=== PATIENT | female | born 1985 | race Caucasian/White ===

== ENCOUNTER 2021-10-01 10:05 | Outpatient (CLI) | payer BC | END 2021-10-01 10:06 | disposition EMS.NT | LOC: EMS 10:05 | DX: Z03.89 Encounter for observation for other suspected diseases and conditions ruled out (principal) ==

== ENCOUNTER 2021-10-02 06:07 | Outpatient (CLI) | payer BC | END 2021-10-02 06:08 | disposition critical access hospital (66) | LOC: EMS 06:07 | DX: R46.89 Other symptoms and signs involving appearance and behavior (principal); L29.9 Pruritus, unspecified | CPT/HCPCS: A0425; A0429 ==

== ENCOUNTER 2021-10-02 06:27 | Emergency (ER) | payer BC ==
[2021-10-02 06:41] VITALS: BP 132/70
== END 2021-10-02 06:51 | disposition left against medical advice (07) ==
LOC: ED 06:27
DX: Z53.21 Procedure and treatment not carried out due to patient leaving prior to being seen by health care provider (principal)

== ENCOUNTER 2021-10-02 17:18 | Emergency (ER) | payer BC ==
[2021-10-02 18:20] LABS: BASOPHILS % (AUTO) 0.1 %; EOSINOPHILS % (AUTO) 0.5 %; HCT - HEMATOCRIT 43.8 % (37.0-47.0); HGB - HEMOGLOBIN 14.9 g/dL (12.0-16.0); LYMPHOCYTES % (AUTO) 24.1 %; MEAN CORPUSCULAR HEMOGLOBIN 30.1 pg (27.0-31.0); MEAN CORPUSCULAR VOLUME 88.5 fL (81.0-99.0); MEAN PLATELET VOLUME 10.1 fL (7.9-10.8); MONOCYTES # (AUTO) 0.7 10^3/uL (0.0-1.0); MONOCYTES % (AUTO) 8.7 %; NEUTROPHILS # (AUTO) 5.4 10^3/uL (1.5-6.6); NEUTROPHILS % (AUTO) 66.4 %; PLT - PLATELET COUNT 304 10^3/uL (130-450); RED BLOOD COUNT 4.95 10^6/uL (4.20-5.40); RED CELL DISTRIBUTION WIDTH 12.5 % (12.0-15.0); WHITE BLOOD COUNT 8.1 x10^3/uL (4.8-10.8)
[2021-10-02 18:26] LABS: ALBUMIN/GLOBULIN RATIO 1.9 (1.0-2.2); BILIRUBIN,TOTAL 0.9 mg/dL (0.2-1.0); CREATININE 0.9 mg/dL (0.4-1.0); POTASSIUM 3.5 mmol/L (3.5-5.0); TOTAL PROTEIN 7.7 g/dL (6.7-8.2)
[2021-10-02 18:33] LABS: GLUCOSE, URINE (UA) NEGATIVE (NEGATIVE); KETONES,URINE (UA) >=80 mg/dL (NEGATIVE); LEUKOCYTE ESTERASE, URINE NEGATIVE (NEGATIVE); NITRITE,URINE NEGATIVE (NEGATIVE); OCCULT BLOOD,URINE NEGATIVE (NEGATIVE); PROTEIN,URINE 100 mg/dL (NEGATIVE); UROBILINOGEN,URINE 0.2 (NORMAL) E.U./dL (NORMAL)
--- NOTE | 2021-10-02 18:36 | ED Physician Documentation ---
History of Present Illness - Stated complaint Stated Complaint: FEMALE - Chief complaint Chief Complaint: Abd Pain - Additonal information Additional information: 36-year-old female presents emergency department for evaluation of 2 days lower abdominal cramping and reported vaginal bleeding and pus draining from her vagina. She also states that she scratched her ear and thought there was a bug in it and now thinks that she has bugs in her vagina. She is and sexually active. Denies dyspareunia. No history of STI. No pelvic surgical history. No fevers, some vomiting. Pt's reports concern that pt has not bonded well with her baby and is hallucinating. he would like her to be involuntarily committed to the hospital. I discussed these concerns with the patient. She is alert, well appearing. Oriented to person, time or place. She Denies SI/HI. She is concerned that she has bugs crawling in her vagina, which is why she comes to the ED> however she does nto desire psychiatric placement and appears to have the capacity to decline this Review of Systems Constitutional: reports: Reviewed and negative Ears: reports: Reviewed and negative Nose: reports: Reviewed and negative Throat: reports: Reviewed and negative Cardiac: reports: Reviewed and negative Respiratory: reports: Reviewed and negative GI: reports: Vomiting. denies: Abdominal Pain : reports: Other (Pelvic cramping pain/cramp). 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 : None HEENT: None Psych: ADD/ADHD Musculoskeletal: None Derm: None - Past Surgical History Past Surgical History: No - Present Medications Home Medications: Ambulatory Orders Medication Instructions Recorded Confirmed Dextroamphetamine/Amphetamine 15 mg PO DAILY 10/02/21 10/02/21 [Adderall 15 mg Tablet] - Allergies Allergies/Adverse Reactions: Allergies Allergy/AdvReac Type Severity Reaction Status Date / Time No Known Drug Allergies Allergy Verified 10/02/21 17:41 - Social History Does the pt smoke?: Yes Smoking Status: Current every day smoker Does the pt drink ETOH?: No Does the pt have substance abuse?: No - Immunizations Immunizations are current?: No - POLST Patient has POLST: No PD ED PE NORMAL - General General: Alert and oriented X 3, No acute distress - HEENT HEENT: Atraumatic, Moist mucous membranes - Neck Neck: Supple, no meningeal sign, No adenopathy - Cardiac Cardiac: RRR, No murmur - Respiratory Respiratory: No respiratory distress, Clear bilaterally - Abdomen Abdomen: Soft, Non tender - Back Back: No CVA TTP - Derm Derm: Normal color, Warm and dry - Extremities Extremities: No deformity, No tenderness to palpate, Normal ROM s pain - Neuro Neuro: Alert and oriented X 3, inspector chief 2-12 intact Eye Opening: Spontaneous Motor: Obeys Commands Verbal: Oriented GCS Score: 15 - Psych Psych: Normal mood (No AH/VH. Denies SI/HI. Declines psychiatric evaluation) Results - Vitals Vitals: Vital Signs - 24 hr 10/02/21 10/02/21 17:35 18:28 Temperature 36.3 C L 36.4 C L Heart Rate 120 H 106 H Respiratory 16 18 Rate Blood Pressure 149/82 H 144/99 H O2 Saturation 97 98 Oxygen O2 Source Room air - Labs Labs: Microbiology 10/02/21 19:18 Wet Prep - Final Vaginal Laboratory Tests 10/02/21 10/02/21 10/02/21 17:50 18:06 18:06 WBC 8.1 RBC 4.95 Hgb 14.9 Hct 43.8 MCV 88.5 MCH 30.1 MCHC 34.0 RDW 12.5 Plt Count 304 MPV 10.1 Neut # (Auto) 5.4 Lymph # (Auto) 2.0 [place] # (Auto) 0.7 Eos # (Auto) 0.0 Baso # (Auto) 0.0 Absolute Nucleated RBC 0.00 Nucleated RBC % 0.0 Sodium 140 Potassium 3.5 Chloride 99 L Carbon Dioxide 26 Anion Gap 15.0 H BUN 15 Creatinine 0.9 Estimated GFR (MDRD) 71 L Glucose 129 H Calcium 10.0 Total Bilirubin 0.9 AST 33 ALT 28 Alkaline Phosphatase 75 Total Protein 7.7 Albumin 5.0 Globulin 2.7 Albumin/Globulin Ratio 1.9 Lipase 42 Urine Color YELLOW Urine Clarity CLEAR Urine pH 6.0 Ur Specific [place] >=1.030 H Urine Protein 100 H Urine Glucose (UA) NEGATIVE Urine Ketones >=80 H Urine Occult Blood NEGATIVE Urine Nitrite NEGATIVE Urine Bilirubin NEGATIVE Urine Urobilinogen 0.2 (NORMAL) Ur Leukocyte Esterase NEGATIVE Urine RBC 0-5 Urine WBC 0-3 Ur Squamous Epith Cells FEW Squamous Urine Bacteria None Seen Urine Mucus Marked Strands Ur Microscopic Review INDICATED Urine Culture Comments NOT INDICATED Urine HCG, Qual NEGATIVE PD MEDICAL DECISION MAKING - ED course Complexity details: reviewed results, re-evaluated patient, considered differential, d/w patient ED course: 36-year-old female presents to the emergency department for evaluation of 2 days lower abdominal pelvic pain and cramping as well as what she reported as purulent discharge. Her screening labs including her urinalysis are unremarkable. I did do a pelvic exam at the bedside and found no abnormal discharge. There was no uterine or adnexal tenderness. With the patient's permission I did speak to her in private. He is concerned that the patient is hallucinating and seeing bugs. The patient denies that she sees bugs though she is concerned that she could have had them in her vagina. She has no thoughts of self-harm or harm to others. Her reported that she ran away from home yesterday when they got into an argument but she did return. He would like her to have a psychiatric evaluation but the patient does not consent to this and she appears to have the capacity to make that decision at this time. With regards to her pelvic pain I did offer a pelvic ultrasound but she no longer wanted to wait therefore she will be discharged with outpatient follow-up. Departure - Departure Disposition: 01 Home, Self Care Clinical Impression: Pelvic pain Condition: Stable Record reviewed to determine appropriate education?: Yes Comments: You are seen in the emergency department today for lower pelvic cramping. You had reported discharge from your vagina. However your pelvic exam today was normal. On palpation your uterus and ovaries were nontender. We did offer a pelvic ultrasound but you declined that due to the wait time. I do recommend you follow-up closely with your primary care doctor to have a pelvic ultrasound ordered as an outpatient. Your expressed concern to us that you have run away from home and that you may be having hallucinations. You are denying hallucinations to me and you are alert and oriented. We cannot compel you to stay and seek treatment that you do not desire. If you ever feel unsafe, have thoughts of harm to yourself or anyone else then you are to return immediately to the ER.
[2021-10-02 18:37] LABS: BILIRUBIN,URINE NEGATIVE (NEGATIVE); CLARITY,URINE CLEAR (CLEAR); HCG UR QUAL NEGATIVE; ICTOTEST,URINE NEGATIVE
[2021-10-02 18:50] LABS: BACTERIA,URINE None Seen /HPF (None Seen); MUCUS,URINE Marked Strands; RBC,URINE 0-5 /HPF (0-5); SQUAMOUS EPITHELIAL CELL,UR FEW Squamous (<= Few); WBC,URINE 0-3 /HPF (0-5)
[2021-10-02 20:13] VITALS: BP 140/81
[2021-10-02 22:49] LABS: CHLAMYDIA TRACHOMATIS DNA NEGATIVE (NEGATIVE); NEISSERIA GONORRHOEAE DNA NEGATIVE (NEGATIVE); TRICHOMONAS VAGINALIS DNA NEGATIVE (NEGATIVE)
== END 2021-10-02 20:12 | disposition home or self-care (01) ==
LOC: ED 17:18
DX: R10.30 Lower abdominal pain, unspecified (principal); F17.200 Nicotine dependence, unspecified, uncomplicated
CPT/HCPCS: 36415; 80053; 81001; 81003; 81025; 83690; 85025; 87086; 87210; 87491; 87591; 87661; 99283; 99284

== ENCOUNTER 2021-10-03 06:37 | Outpatient (CLI) | payer BC | END 2021-10-03 06:38 | disposition EMS.NT | LOC: EMS 06:37 | DX: R44.1 Visual hallucinations (principal) ==

== ENCOUNTER 2021-10-03 13:18 | Emergency (ER) | payer BC ==
[2021-10-03 13:51] LABS: BASOPHILS % (AUTO) 0.2 %; EOSINOPHILS % (AUTO) 0.4 %; HGB - HEMOGLOBIN 14.2 g/dL (12.0-16.0); LYMPHOCYTES # (AUTO) 1.5 10^3/uL (1.5-3.5); MEAN CORPUSCULAR HEMOGLOBIN 30.1 pg (27.0-31.0); MEAN CORPUSCULAR HGB CONC 33.8 g/dL (32.0-36.0); MEAN PLATELET VOLUME 9.7 fL (7.9-10.8); MONOCYTES # (AUTO) 0.4 10^3/uL (0.0-1.0); MONOCYTES % (AUTO) 8.2 %; NEUTROPHILS # (AUTO) 2.7 10^3/uL (1.5-6.6); PLT - PLATELET COUNT 252 10^3/uL (130-450); RED BLOOD COUNT 4.72 10^6/uL (4.20-5.40); RED CELL DISTRIBUTION WIDTH 12.5 % (12.0-15.0); WHITE BLOOD COUNT 4.6 x10^3/uL (4.8-10.8)
[2021-10-03 14:12] LABS: ACETAMINOPHEN < 10 ug/mL (10-30); ALBUMIN 4.5 g/dL (3.2-5.5); ALBUMIN/GLOBULIN RATIO 1.7 (1.0-2.2); ALKALINE PHOSPHATASE 65 IU/L (42-121); ALT ALANINE AMINOTRANSFERASE 29 IU/L (10-60); AST ASPARTATE AMINOTRANSFERASE 35 IU/L (10-42); BILIRUBIN,TOTAL 1.2 mg/dL (0.2-1.0); BUN - BLOOD UREA NITROGEN 11 mg/dL (6-20); CALCIUM 9.4 mg/dL (8.5-10.3); CARBON DIOXIDE - CO2 25 mmol/L (21-32); CHLORIDE 102 mmol/L (101-111); CREATININE 0.7 mg/dL (0.4-1.0); ETOH - ETHANOL < 5.0 mg/dL; GFR - MDRD 95 (>89); GLUCOSE 105 mg/dL (70-100); LIPASE 93 U/L (22-51); POTASSIUM 3.1 mmol/L (3.5-5.0); SALICYLATE < 6.0 mg/dL; SODIUM 142 mmol/L (135-145); TOTAL PROTEIN 7.2 g/dL (6.7-8.2)
[2021-10-03 14:16] LABS: MUDS CUTOFF CONCENTRATIONS CUTOFF CONC BELOW:
--- NOTE | 2021-10-03 14:29 | ED Physician Documentation ---
History of Present Illness - Stated complaint Stated Complaint: FEMALE , MHE - Chief complaint Chief Complaint: MHE - Additonal information Additional information: 36-year-old female return to the emergency department with her for a mental health evaluation. reports that over the last 2 weeks the patient has been reportedly complaining that there are bugs in her children's eyes and on her and inside her vagina. She does have an unclear psychiatric history and psychiatric hospitalization when she was a teenager. This morning the patient was attempting to load the handgun at home with bullets but because it was locked she could not do that. She reportedly stated that she wanted to because she is tired of feeling unwell. Patient is 5 months reports patient is not bonding well with the child. Very rarely interactive with it and holds it only to breast-feed. The patient denies that she has thoughts of harm to others. She has never tried to harm her self in the past and is unsure if she would harm her self now but she does not feel safe. She states that she would allow voluntary psychiatric hospitalization if it was felt best for her. Patient was seen in the emergency department last night for pelvic concerns and that there may be bugs crawling in her. Her pelvic and vaginal exam was unremarkable. Wet prep was negative. Her did discuss concerns that the patient is not bonding well with the child at home. He also reported to me that the patient is seeing bugs. However at that time there was no suicidal thoughts. And the patient could not be compelled to stay for psychiatric evaluation. She did have the capacity to make that decision. Review of Systems Constitutional: denies: Fever, Chills Eyes: reports: Reviewed and negative Nose: reports: Reviewed and negative Throat: reports: Reviewed and negative Cardiac: reports: Reviewed and negative Respiratory: reports: Reviewed and negative GI: reports: Reviewed and negative : reports: Reviewed and negative Skin: reports: Reviewed and negative Musculoskeletal: reports: Reviewed and negative Psychiatric: reports: Depressed, Suicidal, Hallucinations Endocrine: reports: Reviewed and negative PD PAST MEDICAL HISTORY - Past Medical History Cardiovascular: None Respiratory: None Neuro: None Endocrine/Autoimmune: None GI: 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 : None HEENT: None Psych: ADD/ADHD Musculoskeletal: None Derm: None - Past Surgical History Past Surgical History: No - Present Medications Home Medications: Ambulatory Orders Medication Instructions Recorded Confirmed Dextroamphetamine/Amphetamine 15 mg PO DAILY 10/02/21 10/02/21 [Adderall 15 mg Tablet] - Allergies Allergies/Adverse Reactions: Allergies Allergy/AdvReac Type Severity Reaction Status Date / Time No Known Drug Allergies Allergy Verified 10/03/21 13:28 - Social History Does the pt smoke?: Yes Smoking Status: Current every day smoker Does the pt drink ETOH?: No Does the pt have substance abuse?: No - Immunizations Immunizations are current?: No - POLST Patient has POLST: No PD ED PE NORMAL - General General: Alert and oriented X 3, No acute distress, Well developed/nourished - HEENT HEENT: Atraumatic, Ears normal, Moist mucous membranes - Neck Neck: Supple, no meningeal sign, No adenopathy - Cardiac Cardiac: RRR, No murmur - Respiratory Respiratory: No respiratory distress - Abdomen Abdomen: Normal bowel sounds, Soft - 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 No vaginal discharge. No CMT or adnexal tenderness) - Derm Derm: Normal color, Warm and dry, No rash - Neuro Neuro: Alert and oriented X 3, lining feller 2-12 intact, No motor deficit Eye Opening: Spontaneous Motor: Obeys Commands Verbal: Oriented GCS Score: 15 - Psych Psych: Other (poor insight; thinks bugs are crawling in her vagina; attempted to load gun to harm herself) Results - Vitals Vitals: Vital Signs - 24 hr 10/03/21 10/03/21 13:21 14:13 Temperature 36.9 C 36.8 C Heart Rate 103 H 102 H Respiratory 16 18 Rate Blood Pressure 128/82 H 126/78 O2 Saturation 100 98 Oxygen O2 Source Room air - Labs Labs: Laboratory Tests 10/03/21 10/03/21 10/03/21 13:46 13:46 13:46 WBC 4.6 L RBC 4.72 Hgb 14.2 Hct 42.0 MCV 89.0 MCH 30.1 MCHC 33.8 RDW 12.5 Plt Count 252 MPV 9.7 Neut # (Auto) 2.7 Lymph # (Auto) 1.5 [place] # (Auto) 0.4 Eos # (Auto) 0.0 Baso # (Auto) 0.0 Absolute Nucleated RBC 0.00 Nucleated RBC % 0.0 Sodium 142 Potassium 3.1 L Chloride 102 Carbon Dioxide 25 Anion Gap 15.0 H BUN 11 Creatinine 0.7 Estimated GFR (MDRD) 95 Glucose 105 H Calcium 9.4 Total Bilirubin 1.2 H AST 35 ALT 29 Alkaline Phosphatase 65 Total Protein 7.2 Albumin 4.5 Globulin 2.7 Albumin/Globulin Ratio 1.7 Lipase 93 H TSH 0.93 Urine Color Urine Clarity Urine pH Ur Specific [place] Urine Protein Urine Glucose (UA) Urine Ketones Urine Occult Blood Urine Nitrite Urine Bilirubin Urine Urobilinogen Ur Leukocyte Esterase Urine RBC Urine WBC Ur Squamous Epith Cells Urine Bacteria Ur Microscopic Review Urine Culture Comments Urine HCG, Qual Nasal Adenovirus (PCR) Nasal B. parapertussis DNA (PCR) Nasal Coronavir 229E PCR Nasal Coronavir HKU1 PCR Nasal Coronavir NL63 PCR Nasal Coronavir OC43 PCR Nasal Enterovir/Rhinovir PCR Nasal Influenza B PCR Nasal Influenza A PCR Nasal Parainfluen 1 PCR Nasal Parainfluen 2 PCR Nasal Parainfluen 3 PCR Nasal Parainfluen 4 PCR Nasal RSV (PCR) Nasal B.pertussis DNA PCR Nasal C.pneumoniae (PCR) Maciel Human Metapneumo PCR Nasal M.pneumoniae (PCR) Nasal SARS-CoV-2 (PCR) Salicylates < 6.0 Urine Opiates Screen Ur Oxycodone Screen Urine Methadone Screen Ur Propoxyphene Screen Acetaminophen < 10 L Ur Barbiturates Screen Ur Tricyclics Screen Ur Phencyclidine Scrn Ur Amphetamine Screen U Methamphetamines Scrn U Benzodiazepines Scrn Urine Cocaine Screen U Cannabinoids Screen Ethyl Alcohol < 5.0 10/03/21 10/03/21 14:10 14:52 WBC RBC Hgb Hct MCV MCH MCHC RDW Plt Count MPV Neut # (Auto) Lymph # (Auto) [place] # (Auto) Eos # (Auto) Baso # (Auto) Absolute Nucleated RBC Nucleated RBC % Sodium Potassium Chloride Carbon Dioxide Anion Gap BUN Creatinine Estimated GFR (MDRD) Glucose Calcium Total Bilirubin AST ALT Alkaline Phosphatase Total Protein Albumin Globulin Albumin/Globulin Ratio Lipase TSH Urine Color YELLOW Urine Clarity CLEAR Urine pH 6.0 Ur Specific [place] >=1.030 H Urine Protein 30 H Urine Glucose (UA) NEGATIVE Urine Ketones 40 H Urine Occult Blood NEGATIVE Urine Nitrite NEGATIVE Urine Bilirubin NEGATIVE Urine Urobilinogen 0.2 (NORMAL) Ur Leukocyte Esterase NEGATIVE Urine RBC 0-5 Urine WBC 0-3 Ur Squamous Epith Cells FEW Squamous Urine Bacteria Rare Ur Microscopic Review INDICATED Urine Culture Comments NOT INDICATED Urine HCG, Qual NEGATIVE Nasal Adenovirus (PCR) NOT DETECTED Nasal B. parapertussis DNA (PCR) NOT DETECTED Nasal Coronavir 229E PCR NOT DETECTED Nasal Coronavir HKU1 PCR NOT DETECTED Nasal Coronavir NL63 PCR NOT DETECTED Nasal Coronavir OC43 PCR NOT DETECTED Nasal Enterovir/Rhinovir PCR NOT DETECTED Nasal Influenza B PCR NOT DETECTED Nasal Influenza A PCR NOT DETECTED Nasal Parainfluen 1 PCR NOT DETECTED Nasal Parainfluen 2 PCR NOT DETECTED Nasal Parainfluen 3 PCR NOT DETECTED Nasal Parainfluen 4 PCR NOT DETECTED Nasal RSV (PCR) NOT DETECTED Nasal B.pertussis DNA PCR NOT DETECTED Nasal C.pneumoniae (PCR) NOT DETECTED Maciel Human Metapneumo PCR NOT DETECTED Nasal M.pneumoniae (PCR) NOT DETECTED Nasal SARS-CoV-2 (PCR) NOT DETECTED Salicylates Urine Opiates Screen NEGATIVE Ur Oxycodone Screen NEGATIVE Urine Methadone Screen NEGATIVE Ur Propoxyphene Screen NEGATIVE Acetaminophen Ur Barbiturates Screen NEGATIVE Ur Tricyclics Screen NEGATIVE Ur Phencyclidine Scrn NEGATIVE Ur Amphetamine Screen NEGATIVE U Methamphetamines Scrn NEGATIVE U Benzodiazepines Scrn NEGATIVE Urine Cocaine Screen NEGATIVE U Cannabinoids Screen POSITIVE H Ethyl Alcohol PD MEDICAL DECISION MAKING - ED course Complexity details: reviewed results, re-evaluated patient, considered differential, d/w patient, d/w family ED course: 36-year-old female pre-Zentz to the emergency department with her for a mental health evaluation. Has been reports that over the last few weeks she has had increasing hallucinations of bugs crawling on her as well as family members. She is fixated that she has some discharge from her vagina. This morning she took the gun and attempted to load it but could not because it was locked. Patient seems to lack true insight into her decision-making process but she is willing to go to the hospital voluntarily for further evaluation of her hallucinations and suicidal ideation. I did do a limited pelvic exam at the bedside mostly to reassure the patient that there were no findings of bugs crawling around her vagina or abnormal discharge. While here in the ER she has become somewhat anxious therefore she w ill be given some Ativan to help calm her nerves while we search for a psychiatric bed. 1814: Notified by social work that the patient has been accepted to [facility]. However a bed will not be available until the a.m. Patient remains voluntary but given the suicidal ideation if she were to become involuntary the recommendation is to contact [facility]. Pt will be signed out to my colleague Dr. Moreno to monitor overnight; pending transfer tomorrow to [email or web address] Departure - Departure Disposition: [facility] Psych Hosp/Unit DC/Xfer Clinical Impression: Suicidal ideation, Hallucinations
[2021-10-03 14:32] LABS: GLUCOSE, URINE (UA) NEGATIVE (NEGATIVE); KETONES,URINE (UA) 40 mg/dL (NEGATIVE); LEUKOCYTE ESTERASE, URINE NEGATIVE (NEGATIVE); NITRITE,URINE NEGATIVE (NEGATIVE); OCCULT BLOOD,URINE NEGATIVE (NEGATIVE); PROTEIN,URINE 30 mg/dL (NEGATIVE); UROBILINOGEN,URINE 0.2 (NORMAL) E.U./dL (NORMAL)
[2021-10-03 14:50] LABS: BILIRUBIN,URINE NEGATIVE (NEGATIVE); CLARITY,URINE CLEAR (CLEAR); HCG UR QUAL NEGATIVE; ICTOTEST,URINE NEGATIVE
[2021-10-03 14:51] LABS: BACTERIA,URINE Rare /HPF (None Seen); RBC,URINE 0-5 /HPF (0-5); SQUAMOUS EPITHELIAL CELL,UR FEW Squamous (<= Few); WBC,URINE 0-3 /HPF (0-5)
[2021-10-03 14:52] LABS: AMPHETAMINE SCREEN,URINE NEGATIVE (NEGATIVE); BARBITURATE SCREEN,UR NEGATIVE (NEGATIVE); BENZODIAZEPINES SCREEN, URINE NEGATIVE (NEGATIVE); COCAINE SCREEN URINE NEGATIVE (NEGATIVE); METHADONE SCREEN, URINE NEGATIVE (NEGATIVE); METHAMPHETAMINES SCREEN, URINE NEGATIVE (NEGATIVE); OPIATE SCREEN, URINE NEGATIVE (NEGATIVE); OXYCODONE SCREEN, URINE NEGATIVE (NEGATIVE); PROPOXYPHENE SCREEN, URINE NEGATIVE (NEGATIVE); THC CANNABINOID SCREEN, URINE POSITIVE (NEGATIVE); TRICYCLIC ANTIDEPRESSANT,URINE NEGATIVE (NEGATIVE)
[2021-10-03] MEDS ORDERED: NICOTINE 14 MG PATCH TOP STA (15:05)
[2021-10-03] MEDS ORDERED: LORazepam 1 MG TABLET PO STA (15:20)
[2021-10-03 15:48] LABS: B. PARAPERTUSSIS- RESP PCR PAN NOT DETECTED; B. PERTUSSIS- RESP PCR PANEL NOT DETECTED; C. PNEUMONIAE- RESP PCR PANEL NOT DETECTED; CORONAVIRUS 229E-RESP PCR NOT DETECTED; CORONAVIRUS HKU1-RESP PCR NOT DETECTED; CORONAVIRUS NL63-RESP PCR NOT DETECTED; CORONAVIRUS OC43-RESP PCR NOT DETECTED; HUMAN METAPNEUMOVIRUS NOT DETECTED; INFLUENZA A- RESP PCR PANEL NOT DETECTED; INFLUENZA B - RESP PCR PANEL NOT DETECTED; M. PNEUMONIAE- RESP PCR PANEL NOT DETECTED; PARAINFLUENZA VIRUS 1 NOT DETECTED; PARAINFLUENZA VIRUS 2 NOT DETECTED; PARAINFLUENZA VIRUS 3 NOT DETECTED; PARAINFLUENZA VIRUS 4 NOT DETECTED; RHINOVIRUS/ENTEROVIRUS NOT DETECTED; RSV- RESP PCR PANEL NOT DETECTED; SARS-CoV-2 -RESP PCR PANEL NOT DETECTED
[2021-10-04 01:56] VITALS: BP 137/93
[2021-10-04] MEDS ORDERED: QUEtiapine 25 MG TABLET PO STA (02:17)
[2021-10-04] MEDS ORDERED: traZODone 50 MG TABLET PO STA (10:32)
--- NOTE | 2021-10-04 10:36 | ED Physician Documentation ---
ED Addendum - Addendum Addendum: 10/04/21 10:32 The patient was set to be transferred to a psychiatric facility. However she and her talked and change their mind. They would prefer to arranged transportation to [place] for the patient to be with her mother and potentially psychiatric hospitalization there. Her mother has looked into a facility there already. The patient does asked that I look at her hands and feet. She has a feeling of infestation in those areas. She actually has a couple of firm spots on the bottom of her feet with some small holes. There is also blistering of her right index fingertip with some tenderness locally. She states she did have some mild soreness with swallowing the last couple of days. No general viral symptoms however. On exam she does have some tender areas and some small pockmarks around the base of her toes and bottom of her feet. There is only the one blistered tender spot on her finger. She is reluctant to have me look in her mouth. This sounds more likely to be ewex-uqii-[id number]-mouth disease. No signs of purulence. I did unroofed the blister with a scalpel tip in got a faint bit of fluid which I cultured. I feel her hand and feet lesions are actually probably qwqa-[id number]-pop-mouth disease. She is feeling anxious and also has not slept well for several nights. I offered medication for that and can prescribe trazodone 50 mg nightly for the next week. Given a dose here. The patient did contract with safety with the social work therapist and she and her are both agreeable for home and will watch for her. Disposition: The patient is discharged stable from the ER accompanied by her . Diagnoses: depression 2. Lesions on the hands and feet 3. Arfc-qzlb-drk-mouth disease 4. Vague suicidal ideation.
== END 2021-10-04 11:00 | disposition home or self-care (01) ==
LOC: ED 13:18
DX: R44.1 Visual hallucinations (principal); R45.851 Suicidal ideations; F17.200 Nicotine dependence, unspecified, uncomplicated; L98.9 Disorder of the skin and subcutaneous tissue, unspecified; B08.4 Enteroviral vesicular stomatitis with exanthem; Z20.822 Contact with and (suspected) exposure to COVID-19
CPT/HCPCS: 0202U; 36415; 80053; 80306; 80307; 80320; 80329; 81001; 81025; 83690; 84443; 85025; 87070; 87205; 99283; A9270; J8499; 81003; 87086

== ENCOUNTER 2021-10-22 09:02 | Outpatient (CLI) | payer BC | END 2021-10-22 09:03 | disposition critical access hospital (66) | LOC: EMS 09:02 | DX: R10.2 Pelvic and perineal pain (principal); R10.11 Right upper quadrant pain; M54.50 Low back pain, unspecified; N89.8 Other specified noninflammatory disorders of vagina | CPT/HCPCS: A0425; A0429 ==

== ENCOUNTER 2021-10-22 09:22 | Emergency (ER) | payer BC ==
--- NOTE | 2021-10-22 09:39 | ED Physician Documentation ---
PD HPI ABD PAIN - Stated complaint Stated Complaint: ABD CRAMPING - Chief complaint Chief Complaint: Abd Pain - Additional information Additional information: Patient is a 36-year-old female presenting to the emergency department today with chief complaints of sore throat, lower abdominal pain, bloody and purulent discharge from the vagina. She does report a sensation as though there are creatures crawling in her lower abdomen. States that this pain has been consistent with periods of extreme exacerbation for the last 2 weeks. States has been having poor sleep and poor p.o. intake. Is approximately 5 months . Was seen at our facility 10/03/2021. At that time expressed concern that she appears to be having visual hallucinations of bugs and insects on himself and their 5-month-old child. At that time there was report of poor maternal bonding and Passive suicidal ideation without clear plan. [facility] however family elected to take her home instead with plans to visit family in [place] and seek further care there. Patient does report that she has a flight scheduled to [place] Thursday of this week however comes in because of persistent pain. She reports that her mood is fine with the exception of poor sleep. Denies any suicidal or homicidal ideation. Denies auditory hallucinations. 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 : None HEENT: None Psych: ADD/ADHD Musculoskeletal: None Derm: None - Past Surgical History Past Surgical History: No - Present Medications Home Medications: Ambulatory Orders Medication Instructions Recorded Confirmed Dextroamphetamine/Amphetamine 15 mg PO DAILY 10/02/21 10/02/21 [Adderall 15 mg Tablet] traZODone [Desyrel] 50 mg PO HS PRN #7 tablet 10/04/21 - Allergies Allergies/Adverse Reactions: Allergies Allergy/AdvReac Type Severity Reaction Status Date / Time No Known Drug Allergies Allergy Verified 10/22/21 09:32 - Social History Does the pt smoke?: Yes Smoking Status: Current every day smoker Does the pt drink ETOH?: No Does the pt have substance abuse?: No - Immunizations Immunizations are current?: No - POLST Patient has POLST: No PD ED PE NORMAL - General General: Alert and oriented X 3 - HEENT HEENT: Atraumatic, PERRL, EOMI, Ears normal, Moist mucous membranes, Pharynx benign, Dentition benign - Neck Neck: Supple, no meningeal sign, No bony TTP, No adenopathy, Thyroid normal, No JVD - Cardiac Cardiac: RRR, No murmur, No gallop, No rub - Respiratory Respiratory: No respiratory distress, Clear bilaterally - Abdomen Abdomen: Normal bowel sounds, Soft, Non tender, Non distended - Female 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 : 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, Other (WNL) - Back Back: No CVA TTP - Derm Derm: Normal color - Extremities Extremities: No deformity - Neuro Neuro: Alert and oriented X 3, bank messenger 2-12 intact, No motor deficit, No sensory d eficit, Normal speech, Other PD ED PE EXPANDED - Psych Psych: Tactile hallucinations, Delusions Results - Vitals Vitals: Vital Signs - 24 hr 10/22/21 10/22/21 10/22/21 09:29 11:16 13:00 Temperature 37.1 C Heart Rate 93 88 80 Respiratory 18 13 10 L Rate Blood Pressure 120/77 121/87 H 112/75 O2 Saturation 97 99 100 10/22/21 10/22/21 10/22/21 14:30 15:30 17:00 Temperature Heart Rate 77 88 85 Respiratory 11 L 20 10 L Rate Blood Pressure 110/85 H 120/79 129/83 H O2 Saturation 96 99 97 Oxygen O2 Source Room air - Labs Labs: Laboratory Tests 10/22/21 10/22/21 10/22/21 10:00 10:00 10:00 WBC 6.1 RBC 4.34 Hgb 13.2 Hct 39.4 MCV 90.8 MCH 30.4 MCHC 33.5 RDW 13.5 Plt Count 231 MPV 10.4 Neut # (Auto) 4.6 Lymph # (Auto) 1.1 L [place] # (Auto) 0.4 Eos # (Auto) 0.0 Baso # (Auto) 0.0 Absolute Nucleated RBC 0.00 Nucleated RBC % 0.0 PT 11.8 INR 1.1 Sodium 136 Potassium 3.8 Chloride 102 Carbon Dioxide 24 Anion Gap 10.0 BUN 13 Creatinine 0.5 Estimated GFR (MDRD) 140 Glucose 108 H Lactic Acid Calcium 9.3 Total Bilirubin 1.1 H AST 17 ALT 21 Alkaline Phosphatase 75 Total Creatine Kinase 71 Total Protein 6.9 Albumin 4.4 Globulin 2.5 Albumin/Globulin Ratio 1.8 Lipase 34 TSH Urine Color Urine Clarity Urine pH Ur Specific Sasser Urine Protein Urine Glucose (UA) Urine Ketones Urine Occult Blood Urine Nitrite Urine Bilirubin Urine Urobilinogen Ur Leukocyte Esterase Ur Microscopic Review Urine Culture Comments Urine HCG, Qual Nasal Adenovirus (PCR) Nasal B. parapertussis DNA (PCR) Nasal Coronavir 229E PCR Nasal Coronavir HKU1 PCR Nasal Coronavir NL63 PCR Nasal Coronavir OC43 PCR Nasal Enterovir/Rhinovir PCR Nasal Influenza B PCR Nasal Influenza A PCR Nasal Parainfluen 1 PCR Nasal Parainfluen 2 PCR Nasal Parainfluen 3 PCR Nasal Parainfluen 4 PCR Nasal RSV (PCR) Nasal B.pertussis DNA PCR Nasal C.pneumoniae (PCR) Maciel Human Metapneumo PCR Nasal M.pneumoniae (PCR) Nasal SARS-CoV-2 (PCR) Salicylates < 6.0 Urine Opiates Screen Ur Oxycodone Screen Urine Methadone Screen Ur Propoxyphene Screen Acetaminophen < 10 L Ur Barbiturates Screen Ur Tricyclics Screen Ur Phencyclidine Scrn Ur Amphetamine Screen U Methamphetamines Scrn U Benzodiazepines Scrn Urine Cocaine Screen U Cannabinoids Screen Ethyl Alcohol < 5.0 10/22/21 10/22/21 10/22/21 10:00 10:00 10:00 WBC RBC Hgb Hct MCV MCH MCHC RDW Plt Count MPV Neut # (Auto) Lymph # (Auto) [place] # (Auto) Eos # (Auto) Baso # (Auto) Absolute Nucleated RBC Nucleated RBC % PT INR Sodium Potassium Chloride Carbon Dioxide Anion Gap BUN Creatinine Estimated GFR (MDRD) Glucose Lactic Acid 0.8 Calcium Total Bilirubin AST ALT Alkaline Phosphatase Total Creatine Kinase Total Protein Albumin Globulin Albumin/Globulin Ratio Lipase TSH 0.72 Urine Color YELLOW Urine Clarity CLEAR Urine pH 6.0 Ur Specific Sasser 1.020 Urine Protein NEGATIVE Urine Glucose (UA) NEGATIVE Urine Ketones TRACE Urine Occult Blood NEGATIVE Urine Nitrite NEGATIVE Urine Bilirubin NEGATIVE Urine Urobilinogen 0.2 (NORMAL) Ur Leukocyte Esterase NEGATIVE Ur Microscopic Review NOT INDICATED Urine Culture Comments NOT INDICATED Urine HCG, Qual NEGATIVE Nasal Adenovirus (PCR) Nasal B. parapertussis DNA (PCR) Nasal Coronavir 229E PCR Nasal Coronavir HKU1 PCR Nasal Coronavir NL63 PCR Nasal Coronavir OC43 PCR Nasal Enterovir/Rhinovir PCR Nasal Influenza B PCR Nasal Influenza A PCR Nasal Parainfluen 1 PCR Nasal Parainfluen 2 PCR Nasal Parainfluen 3 PCR Nasal Parainfluen 4 PCR Nasal RSV (PCR) Nasal B.pertussis DNA PCR Nasal C.pneumoniae (PCR) Maciel Human Metapneumo PCR Nasal M.pneumoniae (PCR) Nasal SARS-CoV-2 (PCR) Salicylates Urine Opiates Screen NEGATIVE Ur Oxycodone Screen POSITIVE H Urine Methadone Screen NEGATIVE Ur Propoxyphene Screen NEGATIVE Acetaminophen Ur Barbiturates Screen NEGATIVE Ur Tricyclics Screen NEGATIVE Ur Phencyclidine Scrn NEGATIVE Ur Amphetamine Screen NEGATIVE U Methamphetamines Scrn NEGATIVE U Benzodiazepines Scrn NEGATIVE Urine Cocaine Screen NEGATIVE U Cannabinoids Screen POSITIVE H Ethyl Alcohol 10/22/21 10:13 WBC RBC Hgb Hct MCV MCH MCHC RDW Plt Count MPV Neut # (Auto) Lymph # (Auto) [place] # (Auto) Eos # (Auto) Baso # (Auto) Absolute Nucleated RBC Nucleated RBC % PT INR Sodium Potassium Chloride Carbon Dioxide Anion Gap BUN Creatinine Estimated GFR (MDRD) Glucose Lactic Acid Calcium Total Bilirubin AST ALT Alkaline Phosphatase Total Creatine Kinase Total Protein Albumin Globulin Albumin/Globulin Ratio Lipase TSH Urine Color Urine Clarity Urine pH Ur Specific Sasser Urine Protein Urine Glucose (UA) Urine Ketones Urine Occult Blood Urine Nitrite Urine Bilirubin Urine Urobilinogen Ur Leukocyte Esterase Ur Microscopic Review Urine Culture Comments Urine HCG, Qual Nasal Adenovirus (PCR) NOT DETECTED Nasal B. parapertussis DNA (PCR) NOT DETECTED Nasal Coronavir 229E PCR NOT DETECTED Nasal Coronavir HKU1 PCR NOT DETECTED Nasal Coronavir NL63 PCR NOT DETECTED Nasal Coronavir OC43 PCR NOT DETECTED Nasal Enterovir/Rhinovir PCR NOT DETECTED Nasal Influenza B PCR NOT DETECTED Nasal Influenza A PCR NOT DETECTED Nasal Parainfluen 1 PCR NOT DETECTED Nasal Parainfluen 2 PCR NOT DETECTED Nasal Parainfluen 3 PCR NOT DETECTED Nasal Parainfluen 4 PCR NOT DETECTED Nasal RSV (PCR) NOT DETECTED Nasal B.pertussis DNA PCR NOT DETECTED Nasal C.pneumoniae (PCR) NOT DETECTED Maciel Human Metapneumo PCR NOT DETECTED Nasal M.pneumoniae (PCR) NOT DETECTED Nasal SARS-CoV-2 (PCR) NOT DETECTED Salicylates Urine Opiates Screen Ur Oxycodone Screen Urine Methadone Screen Ur Propoxyphene Screen Acetaminophen Ur Barbiturates Screen Ur Tricyclics Screen Ur Phencyclidine Scrn Ur Amphetamine Screen U Methamphetamines Scrn U Benzodiazepines Scrn Urine Cocaine Screen U Cannabinoids Screen Ethyl Alcohol PD MEDICAL DECISION MAKING - ED course Complexity details: reviewed results, d/w patient, d/w family ED course: Patient is a 36-year-old female presenting to the emergency department with chief complaint of abdominal pain. Endorsed for intermittent episodes of lower abdominal pain as well as sleeplessness and feelings of insects as well as bloody and purulent discharge from her vagina. Approximately 5 months from an otherwise uncomplicated vaginal delivery. 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 No active auditory or visual hallucinations during this ER evaluation however does continue to endorse for tactile hallucinations of insects inside of her abdomen. Expressed significant concern that she may have a parasite. Given her history I performed a comprehensive evaluation including lab work, CT and ultrasonography imaging as well as a pelvic exam. These were all within normal limits or nonactionable. She was evaluated independently by social work, please see their documentation for further detail. At this time she is going to be evaluated for possible mental health placement in a local facility. I have ordered some medications to help with rest here in the emergency department. I will be signing her out to the oncoming physician, please see their documentation for further detail.
[2021-10-22] MEDS ORDERED: MORPHINE 2 MG/ML CARPUJECT IVP STA (09:56)
[2021-10-22] MEDS ORDERED: ONDANSETRON 4 MG/2 ML VIAL IVP STA (09:56)
[2021-10-22] MEDS ORDERED: SODIUM CHLORIDE 0.9% 1,000 ML IV STA ×2 (09:57→17:42)
[2021-10-22 10:04] LABS: MUDS CUTOFF CONCENTRATIONS CUTOFF CONC BELOW:
[2021-10-22] MEDS ORDERED: IOVERSOL 320 100 ML VIAL IVP ONE ×2 (10:10→11:17)
[2021-10-22 10:16] LABS: BASOPHILS % (AUTO) 0.3 %; EOSINOPHILS % (AUTO) 0.7 %; HCT - HEMATOCRIT 39.4 % (37.0-47.0); HGB - HEMOGLOBIN 13.2 g/dL (12.0-16.0); LYMPHOCYTES # (AUTO) 1.1 10^3/uL (1.5-3.5); LYMPHOCYTES % (AUTO) 17.3 %; MEAN CORPUSCULAR HEMOGLOBIN 30.4 pg (27.0-31.0); MEAN CORPUSCULAR HGB CONC 33.5 g/dL (32.0-36.0); MEAN CORPUSCULAR VOLUME 90.8 fL (81.0-99.0); MEAN PLATELET VOLUME 10.4 fL (7.9-10.8); MONOCYTES # (AUTO) 0.4 10^3/uL (0.0-1.0); MONOCYTES % (AUTO) 6.4 %; NEUTROPHILS # (AUTO) 4.6 10^3/uL (1.5-6.6); NEUTROPHILS % (AUTO) 75.1 %; PLT - PLATELET COUNT 231 10^3/uL (130-450); RED BLOOD COUNT 4.34 10^6/uL (4.20-5.40); RED CELL DISTRIBUTION WIDTH 13.5 % (12.0-15.0); WHITE BLOOD COUNT 6.1 x10^3/uL (4.8-10.8)
[2021-10-22 10:19] LABS: INR 1.1 (0.8-1.2); PT - PROTHROMBIN TIME 11.8 secs (9.9-12.6)
[2021-10-22 10:20] LABS: BILIRUBIN,URINE NEGATIVE (NEGATIVE); GLUCOSE, URINE (UA) NEGATIVE (NEGATIVE); KETONES,URINE (UA) TRACE mg/dL (NEGATIVE); LEUKOCYTE ESTERASE, URINE NEGATIVE (NEGATIVE); NITRITE,URINE NEGATIVE (NEGATIVE); OCCULT BLOOD,URINE NEGATIVE (NEGATIVE); PROTEIN,URINE NEGATIVE (NEGATIVE); UROBILINOGEN,URINE 0.2 (NORMAL) E.U./dL (NORMAL)
[2021-10-22 10:25] LABS: CLARITY,URINE CLEAR (CLEAR); HCG UR QUAL NEGATIVE
[2021-10-22 10:51] LABS: COCAINE SCREEN URINE NEGATIVE (NEGATIVE); METHAMPHETAMINES SCREEN, URINE NEGATIVE (NEGATIVE); OPIATE SCREEN, URINE NEGATIVE (NEGATIVE); THC CANNABINOID SCREEN, URINE POSITIVE (NEGATIVE)
[2021-10-22 10:52] LABS: AMPHETAMINE SCREEN,URINE NEGATIVE (NEGATIVE); BARBITURATE SCREEN,UR NEGATIVE (NEGATIVE); BENZODIAZEPINES SCREEN, URINE NEGATIVE (NEGATIVE); METHADONE SCREEN, URINE NEGATIVE (NEGATIVE); OXYCODONE SCREEN, URINE POSITIVE (NEGATIVE); PROPOXYPHENE SCREEN, URINE NEGATIVE (NEGATIVE); TRICYCLIC ANTIDEPRESSANT,URINE NEGATIVE (NEGATIVE)
[2021-10-22 10:53] LABS: ACETAMINOPHEN < 10 ug/mL (10-30); ALBUMIN 4.4 g/dL (3.2-5.5); ALBUMIN/GLOBULIN RATIO 1.8 (1.0-2.2); ALKALINE PHOSPHATASE 75 IU/L (42-121); ALT ALANINE AMINOTRANSFERASE 21 IU/L (10-60); AST ASPARTATE AMINOTRANSFERASE 17 IU/L (10-42); BILIRUBIN,TOTAL 1.1 mg/dL (0.2-1.0); BUN - BLOOD UREA NITROGEN 13 mg/dL (6-20); CALCIUM 9.3 mg/dL (8.5-10.3); CARBON DIOXIDE - CO2 24 mmol/L (21-32); CHLORIDE 102 mmol/L (101-111); CK- CREATINE KINASE 71 IU/L (22-269); CREATININE 0.5 mg/dL (0.4-1.0); ETOH - ETHANOL < 5.0 mg/dL; GFR - MDRD 140 (>89); GLUCOSE 108 mg/dL (70-100); LIPASE 34 U/L (22-51); POTASSIUM 3.8 mmol/L (3.5-5.0); SALICYLATE < 6.0 mg/dL; SODIUM 136 mmol/L (135-145); TOTAL PROTEIN 6.9 g/dL (6.7-8.2)
[2021-10-22 11:12] LABS: B. PARAPERTUSSIS- RESP PCR PAN NOT DETECTED; B. PERTUSSIS- RESP PCR PANEL NOT DETECTED; C. PNEUMONIAE- RESP PCR PANEL NOT DETECTED; CORONAVIRUS 229E-RESP PCR NOT DETECTED; CORONAVIRUS HKU1-RESP PCR NOT DETECTED; CORONAVIRUS NL63-RESP PCR NOT DETECTED; CORONAVIRUS OC43-RESP PCR NOT DETECTED; HUMAN METAPNEUMOVIRUS NOT DETECTED; INFLUENZA A- RESP PCR PANEL NOT DETECTED; INFLUENZA B - RESP PCR PANEL NOT DETECTED; M. PNEUMONIAE- RESP PCR PANEL NOT DETECTED; PARAINFLUENZA VIRUS 1 NOT DETECTED; PARAINFLUENZA VIRUS 2 NOT DETECTED; PARAINFLUENZA VIRUS 3 NOT DETECTED; PARAINFLUENZA VIRUS 4 NOT DETECTED; RHINOVIRUS/ENTEROVIRUS NOT DETECTED; RSV- RESP PCR PANEL NOT DETECTED; SARS-CoV-2 -RESP PCR PANEL NOT DETECTED
--- NOTE | 2021-10-22 12:39 | CT Report ---
PROCEDURE: Abdomen/Pelvis W INDICATIONS: abdominal pain CONTRAST: IV CONTRAST: Optiray 320 ml: 100 PO CONTRAST: *NO PO CONTRAST TECHNIQUE: After the administration of intravenous contrast, 5 mm thick sections acquired from the diaphragms to the symphysis. 5 mm thick coronal and sagittal reformats were acquired. For radiation dose reducti on, the following was used: automated exposure control, adjustment of mA and/or kV according to bri ent size. COMPARISON: None. FINDINGS: Image quality: Excellent. ABDOMEN: Lung bases: Lung bases are clear. Heart size is normal. There is a small hiatal hernia. Solid organs: Liver and spleen are normal in size and enhancement. Gallbladder Biliary system is non dilated. Pancreas enhances normally. No adrenal nodules. Kidneys demonstrate normal size and e nhancement, without hydronephrosis. Peritoneum and bowel: There is a trace amount of free fluid in the right pericardial gutter. Appendi x is not identified. Mild diverticulosis. No diverticulitis. Bowel loops demonstrate normal wall thic kness and caliber. No free air. Nodes and vessels: No retroperitoneal or mesenteric adenopathy by size criteria. Aorta and inferior vena cava are normal in size. Miscellaneous: No ventral hernias. PELVIS: Genitourinary: Uterus and cervix are prominent consistent with recent . Ovaries are unrema rkable. There is a small amount of free fluid in the cul-de-sac. Bladder wall thickness is normal. Miscellaneous: No inguinal hernias or adenopathy. Bones: No suspicious bony lesions. Moderate degenerative disc disease at L5-S1. No vertebral body c ompression fractures. IMPRESSION: 1. A trace amount of free fluid in the right paracolic gutter and in the cul-de-sac, indeterminate in nature. 2. Appendix is not visualized. Acute appendicitis is felt unlikely but not entirely excluded. 3. Diverticulosis without diverticulitis. Reviewed by: Ca Aiken MD on 10/22/2021 12:38 PM PST Approved by: Ca Aiken MD on 10/22/2021 12:38 PM PST Station ID: [id number]
--- NOTE | 2021-10-22 15:14 | Ultrasound Report ---
PROCEDURE: Pelvic w/Doppler Complete INDICATIONS: abd pain, vaginal discharge, 5 months post TECHNIQUE: PROCEDURE: Pelvic w/Doppler Complete INDICATIONS: abd pain, vaginal discharge, 5 months post TECHNIQUE: Real-time transabdominal scanning was performed of the pelvic organs, with image documentation. COMPARISON: None. FINDINGS: Uterus: Uterus is normal in size at 9.4 x 5.5 x 6.2 cm. Endometrium measures 8.5 mm in combined thi ckness. No endometrial vascularity. Ovaries: The right ovary measures 2.2 x 2.1 x 2.1 cm and the left ovary measures 3.1 x 2.8 x 2.6 cm. There are fewer than 12 ovarian follicles within the bilateral ovaries. Other: No free pelvic fluid. IMPRESSION: 1. Unremarkable pelvic ultrasound. No findings to suggest retained products of conception. Reviewed by: Elizabet Nichols MD on 10/22/2021 3:13 PM PST Approved by: Elizabet Nichols MD on 10/22/2021 3:13 PM PST Station ID: [id number]
[2021-10-22] MEDS ORDERED: OLANZapine ODT 5 MG TABLET TL ONE (17:38)
[2021-10-22] MEDS ORDERED: QUEtiapine 25 MG TABLET PO STA (19:06)
[2021-10-22 20:10] LABS: BACTERIAL VAGINOSIS DNA NEGATIVE (NEGATIVE); CANDIDA GLABRATA DNA NEGATIVE (NEGATIVE); CANDIDA GROUP DNA NEGATIVE (NEGATIVE); CANDIDA KRUSEI DNA NEGATIVE (NEGATIVE); TRICHOMONAS VAGINALIS DNA NEGATIVE (NEGATIVE)
[2021-10-22 22:20] LABS: CHLAMYDIA TRACHOMATIS DNA NEGATIVE (NEGATIVE); NEISSERIA GONORRHOEAE DNA NEGATIVE (NEGATIVE); TRICHOMONAS VAGINALIS DNA NEGATIVE (NEGATIVE)
[2021-10-23 10:09] LABS: MAGNESIUM 2.3 mg/dL (1.7-2.8)
[2021-10-23] MEDS ORDERED: LORazepam 1 MG TABLET PO STA ×2 (10:49→16:19)
[2021-10-23] MEDS ORDERED: NICOTINE 21 MG PATCH TOP STA (11:38)
[2021-10-23 14:24] VITALS: BP 118/78
== END 2021-10-23 16:30 ==
LOC: EDUNIT# → ED 09:22
DX: F29 Unspecified psychosis not due to a substance or known physiological condition (principal); F17.200 Nicotine dependence, unspecified, uncomplicated; Z20.822 Contact with and (suspected) exposure to COVID-19
CPT/HCPCS: 0202U; 36415; 74177; 76856; 80053; 80306; 80307; 80320; 80329; 81003; 81025; 82550; 83605; 83690; 83735; 84443; 85025; 85610; 87210; 87481; 87491; 87591; 87661; 87801; 93005; 93975; 96374; 96375; 99285; A9270; J8499; Q9967; 81001; 87081; 87086